=== PATIENT | male | born 1965 | race Caucasian/White ===

== ENCOUNTER 2025-02-01 13:56 | Emergency (ER) | payer OTHER ==
[~2025-02-01] VITALS: Ht 175.3 cm; Wt 77.3 kg
[2025-02-01 14:05] VITALS: TEMP 98.4
[2025-02-01 14:30] VITALS: BP 109/64; PULSE 82; RESP 18; O2SAT 99
[2025-02-01] MEDS: ACETAMINOPHEN/CODEINE 300-30 MG TABLET PO ONE (15:41)
[2025-02-01] MEDS: methocarbamoL 500 MG TABLET PO ONE (15:41)
[2025-02-01] MEDS: KETOROLAC TROMETHAMINE 60 MG/2 ML VIAL IM ONE (15:41)
[2025-02-01] MEDS ORDERED: METH-659 PO (15:52)
[2025-02-01] MEDS ORDERED: IBUP-1554 PO (15:52)
[2025-02-01] MEDS ORDERED: ACET-2080 PO (15:52)
== END 2025-02-01 16:18 | disposition home or self-care (01) ==
LOC: EMS 14:00
DX: S62.112A Displaced fracture of triquetrum [cuneiform] bone, left wrist, initial encounter for closed fracture (principal); S53.402A Unspecified sprain of left elbow, initial encounter; S20.211A Contusion of right front wall of thorax, initial encounter; S60.222A Contusion of left hand, initial encounter; Z79.899 Other long term (current) drug therapy; W20.8XXA Other cause of strike by thrown, projected or falling object, initial encounter; Y93.89 Activity, other specified; Y92.488 Other paved roadways as the place of occurrence of the external cause; Y99.8 Other external cause status
CPT/HCPCS: 99284; 71045; 71100; 73030; 73090; 73110; 73130; 29125; 96372; J1885; 29240